=== PATIENT | female | born 1995 | race Caucasian/White ===

== ENCOUNTER 2017-03-04 07:59 | Emergency (ER) | payer OTHER ==
[~2017-03-04] VITALS: Ht 167.6 cm; Wt 76.0 kg
[~2017-03-04 07:59] MED LIST: AUG875 PO; BEN50 PO; CLIN-73 PO; HYDR-3498 PO; ONDA4TAB35 PO; PRED20TA PO
[2017-03-04 08:08] VITALS: Ht 167.6 cm; Wt 76.0 kg
[2017-03-04] MEDS ORDERED: KETOROLAC 30 MG INJ IV STA (08:19)
[2017-03-04] MEDS ORDERED: ONDANSETRON 4 MG INJ IV STA (08:19)
[2017-03-04] MEDS ORDERED: DEXAMETHASONE 10 MG/ML 1 ML INJ IV ONE (08:30)
[2017-03-04] MEDS ORDERED: AMPICILLIN/SULB 3 GM/NS (PMX) 100 ML IVPB ONE (08:30)
[2017-03-04] MEDS ORDERED: SOD CHLORIDE 0.9% 1,000 ML IV ONE (09:00)
--- NOTE | 2017-03-04 09:16 | ERD ---
ER Documentation Chief Complaint Date/Time DATE: 03/04/17 TIME: 09:14 Chief Complaint SORE THROAT X 3 DAYS HPI 21-year-old female with a history of peritonsillar abscesses comes emergency room with sore throat for the past 3 or 4 days. She describes painful swallowing, able to handle secretions. Pain is on the right side of the throat. She has not had any trouble breathing. Denies fevers or chills. She reports that she was seen by ENT the last time she had a [employer] and was told that she needed a tonsillectomy but patient reports that due to financial reasons, she was not able to move forward with the procedure. ROS All systems reviewed and are negative except as per history of present illness. Medications Home Meds Active Scripts Prednisone* (Prednisone*) 20 Mg Tab, 40 MG PO DAILY for 4 Days, TAB Prov:MARTITA URENA PA-C 03/04/17 Ibuprofen* (Motrin*) 600 Mg Tab, 600 MG PO Q6, #30 TAB Prov:MARTITA URENA PA-C 03/04/17 Amoxicillin/Potassium Clav (Amox-Clav 875-125 mg Tablet) 875-125 mg Tab, 1 TAB PO BID for 10 Days, #20 TAB Prov:MARTITA URENA PA-C 03/04/17 Diphenhydramine Hcl* (Benadryl*) 50 Mg Cap, 50 MG PO Q6 Y for ITCHING, #30 CAP Prov:SHIRA SANTANA PATHOLOGY LABORATORY DIRECTOR 10/24/15 Prednisone* (Prednisone*) 20 Mg Tab, 40 MG PO DAILY for 3 Days, TAB Prov:LOUISA BRAN 07/25/15 Diphenhydramine Hcl* (Benadryl*) 50 Mg Cap, 50 MG PO Q6 Y for itchiness, #30 CAP Prov:LOUISA BRAN 07/25/15 Amoxicillin-Clavulanate K* (Augmentin*) 875 Mg Tab, 875 MG PO BID for 7 Days, TAB Prov:LOUISA BRAN 07/25/15 Clindamycin Hcl* (Clindamycin Hcl*) 300 Mg Capsule, 300 MG PO TID for 10 Days, CAP Prov:LOUISA BRAN 07/24/15 Ondansetron Hcl* (Zofran* ODT) 4 mg -ODT Tab.disper, 4 MG PO Q6 Y for NAUSEA AND /OR VOMITING, #30 TAB Prov:CHINA STEWARTRizwan PATHOLOGY LABORATORY DIRECTOR 06/04/15 Hydrocodone Bit-Acetaminophen* ([place]*) 5-325 Mg Tab, 1 TAB PO Q6 Y for PAIN, # 10 TAB Prov:CHINA STEWARTRizwan PATHOLOGY LABORATORY DIRECTOR 06/04/15 Allergies Allergies: Coded Allergies: clindamycin (Verified Allergy, Unknown, 07/25/15) PMhx/Soc Medical and Surgical Hx: pt denies Medical Hx, pt denies Surgical Hx History of Surgery: No Anesthesia Reaction: No Hx Neurological Disorder: No Hx Respiratory Disorders: No Hx Cardiac Disorders: No Hx Psychiatric Problems: No Hx Miscellaneous Medical Probl: No Hx Alcohol Use: No Hx Substance Use: No Hx Tobacco Use: No Physical Exam Vitals Vital Signs Date Time Temp Pulse Resp B/P Pulse Ox O2 Delivery O2 Flow Rate FiO2 03/04/17 08:08 98.2 76 18 110/66 98 Physical Exam General: Well-developed, well-nourished. The patient appears in no acute distress. HEENT: Head is normocephalic, atraumatic. No scleral icterus. Right tonsil, shows a peritonsillar abscess, there is mild uveal deviation. There is no drooling or trismus Neck: Supple. Nontender. Lungs: Clear to auscultation. Normal air movement. Heart: Regular rate and rhythm. S1 and S2 are normal. No murmurs, gallops, or rubs. Abdomen: Nondistended. Extremities: No clubbing or cyanosis. Moving extremities x 4. No weakness. Neurologic: Alert and oriented 3. No focal deficits. Normal speech and gait. Skin: Normal turgor. No rash or lesions. Results 24 hrs Current Medications Medications (Trade) Dose Ordered Sig/Erica Route PRN Reason Start Time Stop Time Status Last Admin Dose Admin Ondansetron HCl (Zofran Inj) 4 mg ONCE STAT IV 03/04/17 08:19 03/04/17 08:21 DC 03/04/17 08:44 Ketorolac Tromethamine (Toradol) 30 mg ONCE STAT IV 03/04/17 08:19 03/04/17 08:21 DC 03/04/17 08:44 Dexamethasone 10 mg 10 mg ONCE ONCE IV 03/04/17 08:30 03/04/17 08:31 DC 03/04/17 08:44 Ampicillin Sodium/ Sulbactam Sodium 100 ml @ 100 mls/hr ONCE ONCE IVPB 03/04/17 08:30 03/04/17 09:29 DC 03/04/17 08:54 Sodium Chloride (NS) 1,000 ml @ 1,000 mls/hr Q1H ONCE IV 03/04/17 09:00 03/04/17 09:59 DC 03/04/17 08:44 Lidocaine/ Epinephrine (Xylocaine 2%/ Epi Mpf(Sdv)) 20 ml ONCE ONCE INJ 03/04/17 10:30 03/04/17 10:31 DC Procedures/MDM ED course: She was started on IV fluids, she was given normal saline 1 L, Decadron 10 mg IV , Toradol 30 mg IV, Unasyn 3 g IV. I spoke with ENT, Dr. Olmstead, who was able to come into the emergency department and do an aspiration and drainage. Wound cultures were taken during the procedure. She was observed for approximately an hour, she was doing well, pain is improved. Medical decision making: This 21-year-old female with a history of previous peritonsillar abscesses presents with a mild to moderate peritonsillar abscess on the right side, that was Incised and drained by ENT. Patient at this time is feeling much better. She was given a dose of Unasyn in the emergency department and will be given a prescription to continue with Augmentin, prednisone and ibuprofen. Strict ER return precautions were discussed with the patient. Drains was done, with purulent return. I have instructed her to follow-up with ENT in 1-2 days. Departure Diagnosis: Primary Impression: Peritonsillar abscess Condition: MARTITA Moise PA-C Mar 04, 2017 09:16
[2017-03-04] MEDS ORDERED: LIDOCAINE 2%/EPI MPF (SDV) 20 ML VIAL INJ ONE (10:30)
[2017-03-04] MEDS ORDERED: AMOX1TAB10 PO (11:25)
[2017-03-04] MEDS ORDERED: IBUP-1542 PO (11:25)
[2017-03-04] MEDS ORDERED: PRED20TA PO (11:25)
[2017-03-04 11:39] VITALS: BP 111/59; PULSE 63; RESP 18; TEMP 98.1
--- NOTE | 2017-03-06 04:46 | CONS ---
DATE OF ADMISSION: 03/04/2017 DATE OF CONSULTATION: 03/04/2017 HISTORICAL EVENTS: Bridgett Humphrey is a 21-year-old female with a history of 2 prior peritonsillar abscesses in the past. ENT consult was for a third peritonsillar abscess to be drained. She is complaining of a right sided sore throat for several days with right otalgia. She is able to tolerate fluids but presented to the emergency room when the pain because quite severe. PAST MEDICAL HISTORY: No heart, lung, kidney, or liver disease. PAST SURGICAL HISTORY: None. ALLERGIES: CLINDAMYCIN, WHICH GAVE HER A RASH. MEDICATION: None. SOCIAL HISTORY: No tobacco, alcohol or drug abuse. FAMILY HISTORY: Negative for any heart, lung, kidney or liver disease. REVIEW OF SYSTEMS: A 10-point review of systems is otherwise noncontributory. PHYSICAL EXAMINATION: On examination today the nurse says the mucosa has erythema and edema. Oral cavity and oropharynx show that she has mild trismus. Tongue and mouth are normal. She does have right sided anterior tonsillar pillar edema. There is no uvular deviation. The tonsil is mildly more prominent on that side. When palpating the anterior tonsillar pillar she does have pain. The neck shows no lymphadenopathy or thyromegaly, but she does have tenderness at level 2 on the right. At this point the risks, benefit and alternative of incision and drainage of the peritonsillar abscesses were discussed. She wishes to proceed. The area was injected with approximately 4 mL of 1 percent Lidocaine with 1:100,000 epinephrine. After a sufficient period of time had elapsed, the blade was used to make a stab incision and pus was easily drained. A culture was obtained. A peritonsil clamp was used to break up any loculations. Copious amounts of pus were drained measuring approximately 6 mL. After observing her in the emergency room for approximately 25 minutes, the pain was dramatically better and she could now swallow with only mild discomfort. IMPRESSION: 1. Peritonsillar abscess. 2. Chronic tonsillitis. PLAN: At this point I do believe she needs a tonsillectomy and I discussed this with the patient. She will follow up with our office in at least 1 week. Dictated By: Shin Olmstead MD /marie/pati /Document#: [id number]
== END 2017-03-04 11:40 | disposition home or self-care (01) ==
LOC: FTE 07:59
DX: J36 Peritonsillar abscess (principal)
CPT/HCPCS: 42700; 87070; J0295; J1100; J1885; J2405; J7030; Z7610; 96374; 96375

== ENCOUNTER 2019-05-07 18:32 | Emergency (ER) | payer OTHER ==
[~2019-05-07] VITALS: Ht 167.6 cm; Wt 91.3 kg
[~2019-05-07 18:32] MED LIST changes: +AMOX1TAB10 PO; -CLIN-73 PO; +CLIN300C10 PO; +IBUP-1542 PO
[2019-05-07 18:46] VITALS: Ht 167.6 cm; Wt 91.3 kg
[2019-05-07 20:57] VITALS: BP 130/81; PULSE 65; RESP 19
[2019-05-07] MEDS ORDERED: IBUPROFEN 600 MG TAB PO ONE (21:00)
== END 2019-05-07 20:57 | disposition home or self-care (01) ==
LOC: FTE 18:32
DX: M94.0 Chondrocostal junction syndrome [Tietze] (principal)
CPT/HCPCS: 93005; Z7502; Z7610